=== PATIENT | female | born 1970 | race American Indian/Alaskan Native ===

== ENCOUNTER 2018-11-03 19:21 | Emergency (ER) | payer OTHER ==
--- NOTE | 2018-11-03 20:50 | Emergency Department Report ---
Blank Doc - Documentation Documentation: Woke up with left ankle pain yesterday. pain is at posterior area with redness and pain. pain 10/10 and worst with movement H/O HTn Denies Gout EXT. Left Achilles TTP, Erythema and swelling. Normal pedal pulses R/O achilles tendonitis/vs gout Labs,xray
[2018-11-03 21:23] LABS: Basophils % (Auto) 0.5 % (0.0-1.8); Eosinophils # (Auto) 0.1 K/mm3 (0.0-0.4); Eosinophils % (Auto) 0.8 % (0.0-4.3); Hemoglobin 13.6 gm/dl (10.1-14.3); Lymphocytes # (Auto) 3.2 K/mm3 (1.2-5.4); Lymphocytes % (Auto) 40.9 % (13.4-35.0); Mean Corpuscular HGB Conc 33 % (30-34); Mean Corpuscular Volume 85 fl (79-97); Monocytes # (Auto) 0.6 K/mm3 (0.0-0.8); Platelet Count 293 K/mm3 (140-440); Red Blood Count 4.82 M/mm3 (3.65-5.03); Red Cell Distribution Width 13.7 % (13.2-15.2)
[2018-11-03 21:49] LABS: Erythrocyte Sedimentation Rate 11 mm/Hr (0-20)
--- NOTE | 2018-11-03 22:20 | XRay Report ---
LEFT ANKLE 3 VIEWS INDICATION / CLINICAL INFORMATION: Left ankle pain/swelling /redness COMPARISON: None available. FINDINGS: BONES / JOINT(S): No acute fracture or subluxation. No significant arthritis. SOFT TISSUES: There is mild generalized soft tissue swelling involving the ankle. ADDITIONAL FINDINGS: None. IMPRESSION: No acute osseous abnormality. Signer Name: Xavier Martinez MD Signed: 11/03/2018 10:16 PM Workstation Name: [id number]
[2018-11-03] MEDS ORDERED: ZOFRAN ODT PO ONE (23:35)
[2018-11-03] MEDS ORDERED: IBUPROFEN PO ONE (23:35)
[2018-11-03] MEDS ORDERED: DELTASONE PO ONE (23:35)
[2018-11-04 00:02] VITALS: BP 166/75
--- NOTE | 2018-11-04 00:07 | Emergency Department Report ---
ED Extremity Problem HPI - General Chief complaint: Extremity Injury, Lower Stated complaint: SWOLLEN LEFT ANKLE Time Seen by Provider: 11/03/18 20:45 Source: patient Mode of arrival: Ambulatory Limitations: No Limitations - History of Present Illness Initial comments: Patient is a 47-year-old -[place] female with no past medical history presents to the ED complaining of acute onset persistent nontraumatic left ankle pain and swelling worse on the posterior on the Achilles tendon for the last 3 days, but which got worse the last 2 days. Patient states that the pain is worse with ambulation or palpation. Patient denies fever, chills, numbness and tingling of left foot or left ankle, traumatic injury or fall, heavy lifting, change in vision or hip pain and low back pain. Patient states that she is on her feet a lot at work during the day, and that she works in 4 places. MD Complaint: extremity pain (left ankle), extremity swelling (posterior left ankle), joint swelling (left ankle), joint paint (left ankle) -: Sudden, days(s) (3) Location: left, lower extremity (ankle) History of Same: No -: Yes myalgia, Yes arthralgia, No fever, No associated dyspnea, No associated chest pain Radiation: none Severity scale (0 -10): 8 Quality: aching, sharp, constant Consistency: constant Improves with: nothing Worsens with: weight bearing, walking, palpation Associated Symptoms: denies other symptoms, arthralgias. denies: chest pain, shortness of breath, myalgias - Related Data Previous Rx's Medication Instructions Recorded Last Taken Type Ibuprofen [Motrin] 600 mg PO Q8H PRN #20 tablet 11/04/18 Unknown Rx predniSONE [Deltasone] 40 mg PO QDAY #10 tab 11/04/18 Unknown Rx traMADol [Ultram] 50 mg PO Q6HR PRN #15 tablet 11/04/18 Unknown Rx Allergies Allergy/AdvReac Type Severity Reaction Status Date / Time No Known Allergies Allergy Unverified 11/03/18 19:30 ED Review of Systems ROS: Stated complaint: SWOLLEN LEFT ANKLE Other details as noted in HPI Comment: All other systems reviewed and negative Constitutional: denies: chills, fever Eyes: denies: eye pain, eye discharge, vision change ENT: denies: ear pain, throat pain Respiratory: denies: cough, shortness of breath, wheezing Cardiovascular: denies: chest pain, palpitations Endocrine: no symptoms reported Gastrointestinal: denies: abdominal pain, nausea, diarrhea Genitourinary: denies: urgency, dysuria, discharge Musculoskeletal: joint swelling (left ankle), arthralgia (left ankle). denies: back pain Skin: denies: rash, lesions Neurological: denies: headache, weakness, paresthesias Psychiatric: denies: anxiety, depression Hematological/Lymphatic: denies: easy bleeding, easy bruising ED Past Medical Hx - Social History Smoking Status: Never Smoker Substance Use Type: None - Medications Home Medications: Home Medications Medication Instructions Recorded Confirmed Last Taken Type Ibuprofen [Motrin] 600 mg PO Q8H PRN #20 tablet 11/04/18 Unknown Rx predniSONE [Deltasone] 40 mg PO QDAY #10 tab 11/04/18 Unknown Rx traMADol [Ultram] 50 mg PO Q6HR PRN #15 tablet 11/04/18 Unknown Rx ED Physical Exam - General Limitations: No Limitations General appearance: alert, in no apparent distress - Head Head exam: Present: atraumatic, normocephalic, normal inspection - Eye Eye exam: Present: normal appearance, PERRL, EOMI. Absent: scleral icterus, conjunctival injection, nystagmus Pupils: Present: normal accommodation - ENT ENT exam: Present: normal exam, normal orophraynx, mucous membranes moist. Absent: TM's normal bilaterally, normal external ear exam - Neck Neck exam: Present: normal inspection, full ROM. Absent: tenderness, lymphadenopathy - Respiratory Respiratory exam: Present: normal lung sounds bilaterally. Absent: respiratory distress, wheezes, rales, rhonchi, stridor, chest wall tenderness, accessory muscle use, decreased breath sounds, prolonged expiratory - Cardiovascular Cardiovascular Exam: Present: regular rate, normal rhythm, normal heart sounds. Absent: systolic murmur, diastolic murmur, rubs, gallop - GI/Abdominal GI/Abdominal exam: Present: soft, normal bowel sounds. Absent: distended, tenderness, hyperactive bowel sounds, hypoactive bowel sounds, organomegaly, mass, bruit - Rectal Rectal exam: Present: deferred - Extremities Exam Extremities exam: Present: normal inspection, full ROM, tenderness (left ankle, left Achilles tendon), normal capillary refill, joint swelling (left ankle) - Back Exam Back exam: Present: normal inspection, full ROM. Absent: tenderness, CVA tenderness (R), CVA tenderness (L), muscle spasm, paraspinal tenderness, vertebral tenderness - Neurological Exam Neurological exam: Present: alert, oriented X3, CN II-XII intact, normal gait, reflexes normal - Psychiatric Psychiatric exam: Present: normal affect, normal mood - Skin Skin exam: Present: warm, dry, intact, normal color. Absent: rash ED Course Vital Signs 11/03/18 20:22 Temperature 98.4 F Pulse Rate 71 Respiratory 16 Rate Blood Pressure 174/83 O2 Sat by Pulse 99 Oximetry - Reevaluation(s) Reevaluation #1: 11/04/18 00:17 Patient is alert and oriented 3 and is not in distress or pain. Patient was treated for pain in the ED and left ankle x-ray shows no acute fractures or subluxations. Lab test results including uric acid level is unremarkable. Soniya ent was treated for pain and discharged home on pain medications and advised to follow-up with her primary care physician 5-7 days for reevaluation. Patient's symptoms are characteristic of Achilles tendinitis and muscle strength of the left ankle joint. Patient advised to return to the ED immediately if symptoms get worse. ED Medical Decision Making - Lab Data Result diagrams: 11/03/18 21:09 - Radiology Data Radiology results: report reviewed, image reviewed left ankle x-ray: No acute fractures - Medical Decision Making Patient is alert and oriented 3 and is not in distress or pain. Patient was treated for pain in the ED and left ankle x-ray shows no acute fractures or subluxations. Lab test results including uric acid level is unremarkable. Patient was treated for pain and discharged home on pain medications and advised to follow-up with her primary care physician 5-7 days for reevaluation. Patient's symptoms are characteristic of Achilles tendinitis and muscle strength of the left ankle joint. Patient advised to return to the ED immediately if symptoms get worse. - Differential Diagnosis Achilles tendonitis; Muscle strain of left ankle; ankle sprain Critical care attestation.: If time is entered above; I have spent that time in minutes in the direct care of this critically ill patient, excluding procedure time. ED Disposition Clinical Impression: Achilles tendinitis of left lower extremity Muscle strain of left ankle Qualifiers: Encounter type: initial encounter Qualified Code(s): S96.912A - Strain of unspecified muscle and tendon at ankle and foot level, left foot, initial encounter Disposition: TO HOME OR SELFCARE Is pt being admited?: No Does the pt Need Aspirin: No Condition: Stable Instructions: Muscle Strain (ED), Achilles Tendinitis (ED) Additional Instructions: Take medications with food, drink plenty of fluids and follow up with your primary care physician in 5-7 days for reevaluation. Return to the ED immediately if symptoms get worse. Prescriptions: predniSONE [Deltasone] 40 mg PO QDAY #10 tab Ibuprofen [Motrin] 600 mg PO Q8H PRN #20 tablet PRN Reason: Pain traMADol [Ultram] 50 mg PO Q6HR PRN #15 tablet PRN Reason: Pain Referrals: MARISSA WYATT MD [Primary Care Provider] - 3-5 Days Time of Disposition: 00:00 Print Language: KAZAKH
== END 2018-11-04 00:17 | disposition home or self-care (01) ==
LOC: ED 19:21
DX: S96.912A Strain of unspecified muscle and tendon at ankle and foot level, left foot, initial encounter (principal); X58.XXXA Exposure to other specified factors, initial encounter; Y93.89 Activity, other specified; Y92.89 Other specified places as the place of occurrence of the external cause; Y99.8 Other external cause status
CPT/HCPCS: 36415; 73610; 84550; 84703; 85025; 85652; 99283; J7512; Q0162